=== PATIENT | male | born 1980 | race Caucasian/White ===

== ENCOUNTER 2021-05-11 09:35 | Outpatient (CLI) | payer BC, SELFPAY ==
--- NOTE | 2021-05-11 11:00 | MR_ITS ---
WS: [id number] MRI RIGHT KNEE NONCONTRAST TECHNIQUE: Axial PD, coronal PD fat sat, coronal PD, sagittal PD, and sagittal PD fat-sat images shabbira hailee. CLINICAL INFORMATION: M25.569 - Pain in unspecified knee COMPARISON: April 10, 2021 FINDINGS: Distal quadriceps and patella tendons are intact. Small suprapatellar effusion. Hypertrophic patella. Normal PCL. ACL is not visualized and is completely torn. No normal ACL fibers. Complex horizontal and radial tear involving the posterior horn medial meniscus extending to the valerie cular surface. Blunting of the medial meniscus. Normal lateral meniscus. Normal bone marrow signal in the femoral condyles. Small amount of edema in the posterior lateral tibial plateau. Normal bone marrow signal in the patella. Normal medial and lateral patellar retinaculum. Normal popl iteal fossa. Small amount of edema along the superficial and deep fibers of the medial collateral lig ament. No laxity. MCL appears grossly intact. Normal LCL. MR/MR knee RT wo con* [id number] IMPRESSION: 1. High-grade complete tear of the ACL. No normal fibers visualized. Normal PC L. 2. Complex tear involving the posterior horn medial meniscus extending to the articular surface. 3. Small suprapatellar effusion. 4. Grade 1 injury involving the medial collateral ligament. Normal LCL. 5. Tiny amount of contusion involving the posterior lateral tibial plateau. No rmal femoral condyles. Outbridge grading:
== END 2021-05-11 09:36 | disposition home or self-care (01) ==
LOC: RADSHAW 09:45
PROVIDERS: Visit Provider Orthopaedic Surgery
DX: S83.511A Sprain of anterior cruciate ligament of right knee, initial encounter (principal); X58.XXXA Exposure to other specified factors, initial encounter; M25.461 Effusion, right knee
CPT/HCPCS: 73721